=== PATIENT | male | born 1990 | race Caucasian/White ===

== ENCOUNTER 2016-12-21 00:36 | Emergency (ER) | payer SELFPAY ==
[2016-12-21 00:38] VITALS: BP 142/89; PULSE 128; RESP 16; TEMP 97.6; O2SAT 97
[2016-12-21 00:47] VITALS: BP 139/84; PULSE 115; RESP 20; O2SAT 100
[2016-12-21 00:50] VITALS: O2SAT 97
--- NOTE | 2016-12-21 00:50 | PD ---
HPI Chief Complaint: Chest Pain Time Seen by Provider: 00:48 Travel History International Travel<30 days: No Contact w/Intl Traveler<30days: No Traveled to known affect area: No History of Present Illness HPI 26-year-old male patient with history of smoking, presents to the ER today for left-sided chest pains which are intermittent in nature, 7 out of 10 at its worse, with nausea. He denies any vomiting, has been coughing but denies any shortness of breath or any other symptoms. He has never had similar symptoms in the past. He denies any family history of early heart disease. He does not know any exacerbating or relieving factors. Modifying Factors: None Associated Signs & Symptoms: Left-sided chest pains intermittent Risk Factors: None PFSH Social History Tobacco Use: Yes Allergies-Medications (Allergen,Severity, Reaction): Coded Allergies: No Known Allergies (Unverified , 12/21/16) Reported Meds & Prescriptions Reported Meds & Active Scripts Active No Active Prescriptions or Reported Medications Review of Systems Except as stated in HPI: all other systems reviewed are Neg Physical Exam Narrative GENERAL: Well-developed young white male patient currently in mild distress. Awake and oriented 3. SKIN: Focused skin assessment warm/dry. HEAD: Atraumatic. Normocephalic. EYES: Pupils equal and round. No scleral icterus. No injection or drainage. ENT: No nasal bleeding or discharge. Mucous membranes pink and moist. NECK: Trachea midline. No JVD. CARDIOVASCULAR: Regular rate and rhythm. No murmur appreciated. RESPIRATORY: No accessory muscle use. Clear to auscultation. Breath sounds equal bilaterally. GASTROINTESTINAL: Abdomen soft, non-tender, nondistended. Hepatic and splenic margins not palpable. MUSCULOSKELETAL: No obvious deformities. No clubbing. No cyanosis. No edema. NEUROLOGICAL: Awake and alert. No obvious cranial nerve deficits. Motor grossly within normal limits. Normal speech. PSYCHIATRIC: Appropriate mood and affect; insight and judgment normal. Data Data Last Documented VS Vital Signs Date Time Temp Pulse Resp B/P (MAP) Pulse Ox O2 Delivery O2 Flow Rate FiO2 12/21/16 03:35 12/21/16 00:51 118 20 98 Room Air 12/21/16 00:38 97.6 Orders Orders Electrocardiogram (12/21/16 00:48) Ckmb (Isoenzyme) Profile (12/21/16 00:48) Complete Blood Count With Diff (12/21/16 00:48) Comprehensive Metabolic Panel (12/21/16 00:48) Magnesium (Mg) (12/21/16 00:48) Prothrombin Time / Inr (Pt) (12/21/16 00:48) Act Partial Throm Time (Ptt) (12/21/16 00:48) Troponin I (12/21/16 00:48) Chest, Single Ap (12/21/16 00:48) Ecg Monitoring (12/21/16:48) Bilateral Bp Monitoring (12/21/16:48) Iv Access Insert/Monitor (12/21/16 00:48) Oximetry (12/21/16:48) Oxygen Administration (12/21/16:48) Sodium Chloride 0.9% Flush (Ns Flush) (12/21/16 01:00) CKMB (12/21/16 00:50) CKMB% (12/21/16 00:50) Labs Laboratory Tests Test 12/21/16 00:50 White Blood Count 19.5 TH/MM3 Red Blood Count 5.57 MIL/MM3 Hemoglobin 16.6 GM/DL Hematocrit 48.2 % Mean Corpuscular Volume 86.5 FL Mean Corpuscular Hemoglobin 29.8 PG Mean Corpuscular Hemoglobin Concent 34.4 % Red Cell Distribution Width 12.8 % Platelet Count 436 TH/MM3 Mean Platelet Volume 7.2 FL Neutrophils (%) (Auto) 74.2 % Lymphocytes (%) (Auto) 18.7 % Monocytes (%) (Auto) 5.6 % Eosinophils (%) (Auto) 0.4 % Basophils (%) (Auto) 1.1 % Neutrophils # (Auto) 14.4 TH/MM3 Lymphocytes # (Auto) 3.6 TH/MM3 Monocytes # (Auto) 1.1 TH/MM3 Eosinophils # (Auto) 0.1 TH/MM3 Basophils # (Auto) 0.2 TH/MM3 CBC Comment DIFF FINAL Differential Comment Prothrombin Time 10.3 SEC Prothromb Time International Ratio 0.9 RATIO Activated Partial Thromboplast Time 28.7 SEC Blood Urea Nitrogen 13 MG/DL Creatinine 1.05 MG/DL Random Glucose 106 MG/DL Total Protein 8.3 GM/DL Albumin 4.1 GM/DL Calcium Level 8.7 MG/DL Magnesium Level 2.2 MG/DL Alkaline Phosphatase 90 U/L Aspartate Amino Transf (AST/SGOT) 21 U/L Alanine Aminotransferase (ALT/SGPT) 40 U/L Total Bilirubin 0.4 MG/DL Sodium Level 139 MEQ/L Potassium Level 3.5 MEQ/L Chloride Level 104 MEQ/L Carbon Dioxide Level 27.5 MEQ/L Anion Gap 8 MEQ/L Estimat Glomerular Filtration Rate 84 ML/MIN Total Creatine Kinase 118 U/L Troponin I LESS THAN 0.02 NG/ML MDM Medical Decision Making Medical Screen Exam Complete: Yes Emergency Medical Condition: Yes Medical Record Reviewed: Yes Interpretation(s) EKG shows sinus tachycardia at a rate of 100 bpm, no ST elevation or depression , and no arrhythmias. No significant T-wave inversions. Laboratory Tests Test 12/21/16 00:50 White Blood Count 19.5 TH/MM3 (4.0-11.0) Neutrophils (%) (Auto) 74.2 % (16.0-70.0) Neutrophils # (Auto) 14.4 TH/MM3 (1.8-7.7) Monocytes # (Auto) 1.1 TH/MM3 (0-0.9) Total Protein 8.3 GM/DL (6.4-8.2) Estimat Glomerular Filtration Rate 84 ML/MIN (>89) Troponin I LESS THAN 0.02 NG/ML Differential Diagnosis Chest pains: ACS versus dysrhythmias versus anxiety attack versus costochondritis versus pneumonia Narrative Course EKG shows tachycardia but was otherwise unremarkable. Lab work shows no signs of cardiac enzyme elevation. Chest x-ray did not show any signs of acute pulmonary processes. His saturations are 100% in the ER. His heart rate was initially tachycardic but by time he left his heart rate was in the 80s. At this point, symptoms are mostly subsided and I have talked to the patient regarding his risk factors that include smoking. I have offered to admit the patient to chest pain center for further evaluation of this issue and for further provocative testing but patient declines at this time stating he wants to follow-up as an outpatient with his primary care physician. He will need to get further cardiology follow-up as well. The plan was discussed with the patient and he wants outpatient follow-up, states understanding of the risk of undiagnosed cardiac issues, and should return for any worsening in symptoms. He states understanding. Diagnosis Primary Impression: Chest pain Scripts No Active Prescriptions or Reported Meds Disposition: DISCHARGE HOME Condition: Stable Eliazar Blake MD Dec 21, 2016 00:50
[2016-12-21 00:51] VITALS: BP_SYST 127; BP_SYST 137; BP_DIAS 59; BP_DIAS 84; PULSE 118; RESP 20; O2SAT 98
[2016-12-21] MEDS ORDERED: SODIUM CHLORIDE 0.9% FLUSH 10 ML FLUSH IVF PRN (01:00)
--- NOTE | 2016-12-21 03:03 | RADRPT ---
EXAM DATE/TIME: 12/21/2016 00:52 [facility] COMPARISON: No previous studies available for comparison. INDICATIONS : Chest pain. MEDICAL HISTORY : None. SURGICAL HISTORY : None. ENCOUNTER: Initial ACUITY: 1 day PAIN SCORE: 8/10 LOCATION: Bilateral chest FINDINGS: A single view of the chest demonstrates the lungs to be symmetrically aerated without evidence of mas s, infiltrate or effusion. The cardiomediastinal contours are unremarkable. Osseous structures are intact. CONCLUSION: No acute disease. Jian Lara Jr., MD on December 21, 2016 at 1:17 Board Certified Radiologist. This report was verified electronically.
[2016-12-21 03:18] LABS: AUTOMATED NEUTROPHIL # 14.4 TH/MM3 (1.8-7.7); BASOPHIL # 0.2 TH/MM3 (0-0.2); BASOPHIL % 1.1 % (0.0-2.0); EOSINOPHIL # 0.1 TH/MM3 (0-0.4); EOSINOPHIL % 0.4 % (0.0-4.0); HEMATOCRIT 48.2 % (39.0-51.0); HEMO FLAGS DIFF FINAL; LYMPH % 18.7 % (9.0-44.0); LYMPHOCYTE # 3.6 TH/MM3 (1.0-4.8); MEAN CELL VOLUME 86.5 FL (80.0-100.0); MEAN CORPUSCULAR HEMOGLOBIN 29.8 PG (27.0-34.0); MEAN CORPUSCULAR HGB CONC 34.4 % (32.0-36.0); MONO % 5.6 % (0.0-8.0); NEUT % 74.2 % (16.0-70.0); PLATELET COUNT 436 TH/MM3 (150-450); RED BLOOD COUNT 5.57 MIL/MM3 (4.50-5.90); RED CELL DISTRIBUTION WIDTH 12.8 % (11.6-17.2); WHITE BLOOD COUNT 19.5 TH/MM3 (4.0-11.0)
[2016-12-21 03:20] LABS: ALKALINE PHOSPHATASE 90 U/L (45-117); CREATINE KINASE 118 U/L (39-308); TOTAL BILIRUBIN ADULT 0.4 MG/DL (0.2-1.0)
[2016-12-21 03:21] LABS: APTT (PATIENT) 28.7 SEC (24.3-30.1); INTERNATIONAL NORMALIZED RATIO 0.9 RATIO; PROTHROMBIN TIME - PATIENT 10.3 SEC (9.8-11.6)
[2016-12-21 03:45] LABS: ALT (GPT) 40 U/L (12-78); ANION GAP 8 MEQ/L (5-15); AST (GOT) 21 U/L (15-37); BICARBONATE 27.5 MEQ/L (21.0-32.0); BLOOD UREA NITROGEN 13 MG/DL (7-18); CHLORIDE 104 MEQ/L (98-107); GLOMERULAR FILTRATION RATE 84 ML/MIN (>89); MAGNESIUM 2.2 MG/DL (1.5-2.5); POTASSIUM 3.5 MEQ/L (3.5-5.1); SODIUM (NA) 139 MEQ/L (136-145)
[2016-12-21 04:59] LABS: CKMB 0.7 NG/ML (0.5-3.6)
--- NOTE | 2016-12-21 13:01 | EKG ---
Date Performed: 12/21/2016 Time Performed: 00:47:38 PTAGE: 26 years EKG: SINUS TACHYCARDIA MARKED LEFT AXIS DEVIATION PATTERN CONSISTENT WITH PULMONARY DISEASE ABNO RMAL ECG NO PREVIOUS TRACING DOCTOR: Matheus Wallace Interpretating Date/Time 12/21/2016 12:58:08
== END 2016-12-21 03:00 | disposition home or self-care (01) ==
LOC: NEPE 00:36
DX: R07.9 Chest pain, unspecified (principal); R94.31 Abnormal electrocardiogram [ECG] [EKG]; R11.0 Nausea; Z72.0 Tobacco use
CPT/HCPCS: 71010; 80053; 82550; 82552; 83735; 84484; 85025; 85610; 85730; 93005